=== PATIENT | male | born 1970 | race Caucasian/White ===

== ENCOUNTER 2024-02-13 17:49 | Observation (INO) | payer BC, SELFPAY ==
[2024-02-13] VITALS (7 sets, daily range): BP systolic 91–134; BP diastolic 52–80; PULSE 53–75; TEMP 36.3–39.2; O2SAT 93–98; BMI 18.1
--- NOTE | 2024-02-13 18:12 | XR_ITS ---
The [address] [address] Patient Name: CARLOS ALBERTO GASTON MRN: [id number] date: 1970 Sex: M Assigned Patient Location: ER Current Patient Location: ER Accession/Order Number: [id number] Exam Date: 02/13/2024 18:29 Report Date: 02/13/2024 19:18 At the request of: DANNIE ROBERTS Procedure: XR chest 1V EXAM: XR chest 1V HISTORY: Fever COMPARISON: 04/18/2010. TECHNIQUE: Portable AP view of the chest was obtained. FINDINGS: Stable elevation of the right hemidiaphragm. No cardiomegaly. There is ill-defined patchy airspace disease in the left lung base and in the right suprahilar lung. XR/XR chest 1V IMPRESSION: Ill-defined patchy airspace disease in the left lung base and in the right suprahilar lung. This finding is highly concerning for infection. Follow-up is recommended to document resolution. Electronically authenticated by: HERNANDEZ ARANA Date: 02/13/2024 19:18
--- NOTE | 2024-02-13 18:13 | ED.GENADUL1 ---
HPI HPI - General Adult General Chief complaint: Fever Stated complaint: FLANK PAIN Time Seen by Provider: 02/13/24 17:58 Source: patient Mode of arrival: walk-in Limitations: no limitations History of Present Illness HPI narrative: Patient is a 53-year-old male with no significant medical history who presents to the emergency department for the evaluation of left flank pain, right groin pain and nausea and vomiting over the last 3 days. Patient was unaware of any fevers objectively, although he arrives to the emergency department with a temperature of 102.5 Fahrenheit. He states he had been putting cold rags on his forehead as he felt warm at home. He reports multiple episodes of nausea and vomiting with occasional diarrhea at home. No urinary symptoms although he states he does not seem to be making as much urine over the last several days. He had a procedure at to connect his stomach and esophagus but denies any other abdominal surgeries. No history of kidney stones. No medications taken prior to arrival Related Data Home Medications ?Medication ?Instructions ?Recorded ?Confirmed bupropion HCl 100 mg tablet 200 mg PO BID 02/13/24 02/13/24 Allergies Allergy/AdvReac Type Severity Reaction Status Date / Time No Known Drug Allergies Allergy Verified 02/13/24 17:56 Opioid HPI Opioid Management Most Recent Opioid Data: No Data to Display Review of Systems ROS Constitutional Denies: fever or chills Ears, nose, mouth, and throat Denies: throat pain or nasal congestion Cardiovascular Denies: chest pain Respiratory Denies: shortness of breath or cough Gastrointestinal Reports: abdominal pain, nausea, vomiting and diarrhea Genitourinary Denies: painful urination Musculoskeletal Reports: back pain Integumentary/Breast Denies: rash Hematologic/Lymphatic Denies: easy bruising or easy bleeding PFSH ON LICENSE OF [facility] Social History Little interest or pleasure in doing things: not at all Feeling down, depressed, or hopeless: not at all Exam Narrative Exam Narrative: Gen.: Awake, alert, in no distress Head: Normocephalic, atraumatic ENT: Moist mucous membranes Respiratory: No respiratory distress, lungs clear bilaterally Cardio: Regular rate and rhythm Gastrointestinal: Abdomen is soft, nondistended and mildly tender to palpation in the right lower quadrant with no McBurney's point tenderness, no guarding or rebound Extremities: Moves extremities equally Psych: Normal mood and affect Neuro: No focal neuro deficit Skin: Warm, dry, intact Constitutional Vital Signs, click to edit/add: Last Vital Signs Temp 100.4 F 02/13/24 19:27 Pulse 67 02/13/24 19:27 Resp 16 02/13/24 19:27 BP 93/57 02/13/24 19:27 Pulse Ox 94 L 02/13/24 19:27 O2 Del Method Room Air 02/13/24 17:56 Course Vital Signs Vital signs: Vital Signs Temperature 102.5 F H 02/13/24 17:56 Pulse Rate 75 02/13/24 17:56 Respiratory Rate 18 02/13/24 17:56 Blood Pressure 134/80 02/13/24 17:56 Pulse Oximetry 98 02/13/24 17:56 Oxygen Delivery Method Room Air 02/13/24 17:56 Temperature 100.4 F 02/13/24 19:27 Pulse Rate 67 02/13/24 19:27 Respiratory Rate 16 02/13/24 19:27 Blood Pressure 93/57 02/13/24 19:27 Pulse Oximetry 94 L 02/13/24 19:27 Oxygen Delivery Method Room Air 02/13/24 17:56 Medical Decision Making MDM Narrative Medical decision making narrative: Patient treated for pain with Dilaudid, Toradol, Zofran. IV fluids given. Patient was noted to have hyponatremia, mild leukocytosis, normal lactic acid. Urine specimen with multiple abnormalities although no evidence of infection. Chest x-ray with evidence of multifocal pneumonia and CT of the abdomen and pelvis was initially read as negative although the radiologist called with addendum to say that the right distal ureter appears narrowed with no evidence of hydronephrosis or stranding. Patient admitted for multifocal pneumonia and sepsis as well as hyponatremia. Additional maintenance fluids, Tylenol and Levaquin were given in the ER. I discussed the CT findings with Dr. Thurston for urology. He recommended no additional intervention in the hospital but the patient can follow-up as an outpatient for retrograde cystography and reevaluation. Patient and his significant other were made aware of these findings of the right distal ureter stricture versus non-radiopaque kidney stone, they verbalized understanding for outpatient treatment. Patient admitted in stable condition. SUPERVISED APC VISIT, PHYSICIAN ATTESTATION: Based on the medical record the care appears appropriate. ? Medical Records Medical records reviewed: Yes I reviewed the patient's medical records Lab Data Lab results reviewed: Yes I reviewed the patient's lab results Labs: Lab Results 02/13/24 02/13/24 02/13/24 Range/Units 17:59 18:11 18:18 WBC 12.8 H (4.0-11.0) 10^3/uL RBC 4.61 L (4.70-6.10) 10^6/uL Hgb 14.9 (14.0-18.0) g/dL Hct 42.3 (42.0-54.0) % MCV 91.8 (80.0-94.0) fL MCH 32.3 (25.9-34.0) pg MCHC 35.2 (29.9-35.2) g/dL RDW 12.2 (11.0-15.0) % Plt Count 154 (150-450) 10^3/uL MPV 9.3 L (9.5-13.5) fL Seg Neuts % (Manual) 88.0 H (43.0-75.0) Lymphocytes % (Manual) 4.0 L (20.5-60.0) % Monocytes % (Manual) 8.0 (1.7-12.0) % Eosinophils % (Manual) 0.0 L (0.9-7.0) % Basophils % (Manual) 0.0 L (0.2-2.0) % Neutrophils # (Manual) 11.26 H (1.4-6.5) 10^3/uL Lymphocytes # (Manual) 0.51 L (1.20-3.80) 10^3/uL Monocytes # (Manual) 1.02 H (0.30-0.80) 10^3/uL Eosinophils # (Manual) 0.00 (0.00-0.70) 10^3/uL Basophils # (Manual) 0.00 (0.00-0.10) 10^3/uL VBG pH 7.507 H (7.330-7.430) VBG pCO2 34.2 L (40.0-52.0) mmHg Sodium 124 L* (136-145) mmol/L Potassium 3.7 (3.5-5.1) mmol/L Chloride 87 L (98-107) mmol/L Carbon Dioxide 26.9 (21.0-32.0) mmol/L Anion Gap 13.8 BUN 22.0 H (7.0-18.0) mg/dL Creatinine 1.00 (0.70-1.30) mg/dL Est GFR ( Amer) >60 (>=60) Est GFR (Non-Af Amer) >60 (>=60) BUN/Creatinine Ratio 22.0 Glucose 137 H (74-106) mg/dL Lactate 1.3 (0.4-2.0) mmol/L Calcium 9.0 (8.5-10.1) mg/dL Total Bilirubin 1.1 H (0.2-1.0) mg/dL AST 27 (15-37) U/L ALT 41 (16-63) U/L Alkaline Phosphatase 100 (46-116) U/L Total Protein 7.7 (6.4-8.2) g/dL Albumin 3.4 (3.4-5.0) g/dL Globulin 4.3 g/dL Albumin/Globulin Ratio 0.8 Urine Color Dk. orange (YELLOW) Urine Clarity Clear (CLEAR) Urine pH 6.0 (5.0-9.0) Ur Specific [place] >=1.030 A (1.005-1.025) Urine Protein >=300 A (NEG/TRACE) mg/dL Urine Glucose (UA) 100 A (NEGATIVE) mg/dL Urine Ketones 15 A (NEGATIVE) mg/dL Urine Occult Blood Large A (NEGATIVE) Urine Nitrite Negative (NEGATIVE) Urine Bilirubin Small A (NEGATIVE) Urine Urobilinogen >=8.0 (0.2-1.0) EU/dL Ur Leukocyte Esterase Negative (NEGATIVE) Urine RBC 5-10 A (0-2) #/HPF Urine WBC 0-2 A (NONE SEEN) #/HPF Ur Squamous Epith Cells Rare (NONE/RARE) #/LPF Urine Crystals None seen (None Seen) #/HPF Urine Bacteria Small A (NONE SEEN) #/HPF Urine Casts None seen (NONE SEEN) #/LPF Urine Mucus Moderate A (NONE SEEN) Ur Culture Indicated? Yes SARS-CoV-2 Ag (CV2AG) Negative (NEGATIVE) Imaging Data Chest x-ray: Attestation: I have reviewed the pertinent imaging results. Radiologist's impression: ITS Impressions Chest X-Ray 02/13/24 18:12 IMPRESSION: Ill-defined patchy airspace disease in the left lung base and in the right suprahilar lung. This finding is highly concerning for infection. Follow-up is recommended to document resolution. Electronically authenticated by: HERNANDEZ ARANA Date: 02/13/2024 19:18 Abdomen/Pelvis CT 02/13/24 18:55 IMPRESSION: No evidence of acute abdominopelvic process. Left lower lobe findings concerning for pneumonia. Electronically authenticated by: ARIELLA BALDERRAMA Date: 02/13/2024 19:52 ADDENDUM: 02/13/242013 IMPRESSION: No evidence of acute abdominopelvic process. Left lower lobe findings concerning for pneumonia. Electronically authenticated by: ARIELLA BALDERRAMA Date: 02/13/2024 20:12 Discharge Plan Discharge Chief Complaint: Fever Clinical Impression: Multifocal pneumonia, Sepsis, Acute hyponatremia Patient Disposition: Admitted As Inpatient Time of Disposition Decision: 20:28 Condition: Good Prescriptions / Home Meds: No Action bupropion HCl 100 mg tablet 200 mg PO BID Print Language: Albanian Referrals: EMILIANO ZAMUDIO [Primary Care Provider] - 1 week
[2024-02-13] MEDS: KETOROLAC TROMETHAMINE 30 MG/ML VIAL IVP (18:25)
[2024-02-13] MEDS: ONDANSETRON PF 4 MG/2 ML VIAL IV (18:26)
[2024-02-13] MEDS: 0.9 % SODIUM CHLORIDE 1,000 ML 1000 ML IV (18:26)
[2024-02-13] MEDS: HYDROMORPHONE HCL 0.5 MG/0.5 ML SYRINGE IV (18:26)
[2024-02-13 18:34] LABS: PCO2 VBG 34.2 mmHg (40.0-52.0); pH VBG 7.507 (7.330-7.430)
[2024-02-13 18:47] LABS: Hematocrit 42.3 % (42.0-54.0); Hemoglobin 14.9 g/dL (14.0-18.0); Mean Corpuscular HGB Conc 35.2 g/dL (29.9-35.2); Mean Corpuscular Hemoglobin 32.3 pg (25.9-34.0); Mean Corpuscular Volume 91.8 fL (80.0-94.0); Mean Platelet Volume 9.3 fL (9.5-13.5); Platelet Count 154 10^3/uL (150-450); Red Blood Count 4.61 10^6/uL (4.70-6.10); Red Cell Distribution Width 12.2 % (11.0-15.0); White Blood Count 12.8 10^3/uL (4.0-11.0)
--- NOTE | 2024-02-13 18:55 | CT_ITS ---
The [address] [address] Patient Name: CARLOS ALBERTO GASTON MRN: [id number] date: 1970 Sex: M Assigned Patient Location: ER Current Patient Location: ER Accession/Order Number: [id number] Exam Date: 02/13/2024 18:42 Report Date: 02/13/2024 19:52 At the request of: DANNIE ROBERTS Procedure: CT abdomen pelvis w con EXAM: CT abdomen pelvis w con HISTORY: Abdominal pain COMPARISON: CT chest 06/27/2012 TECHNIQUE: CT of abdomen and pelvis with intravenous contrast in venous and delayed phases. Dose reduction techniques were achieved by using automated exposure control and/or adjustment of mA and/or kV according to patient size and/or use of iterative reconstruction technique. FINDINGS: TUBES AND IMPLANTS: None. LOWER CHEST: Confluent groundglass opacities with subpleural nodularity seen in the left lower lobe. Right lower lobe calcified granuloma. ABDOMEN and PELVIS ABDOMINAL WALL AND SOFT TISSUES: Unremarkable. BONES: Multilevel degenerative changes of the spine. No suspicious lesions. ARTERIES: Moderate aortoiliac atherosclerosis without aneurysm VEINS: Unremarkable. LYMPH NODES: Unremarkable. PERITONEUM/ RETROPERITONEUM: Unremarkable. BOWEL: No obstruction APPENDIX: Unremarkable LIVER: No suspicious lesions. GALLBLADDER: Unremarkable. BILE DUCTS: Not dilated SPLEEN: Calcified granuloma PANCREAS: Unremarkable. ADRENALS: Unremarkable. KIDNEYS/ URETERS: Unremarkable. REPRODUCTIVE ORGANS: Unremarkable URINARY BLADDER: Unremarkable. CT/CT abdomen pelvis w con IMPRESSION: No evidence of acute abdominopelvic process. Left lower lobe findings concerning for pneumonia. Electronically authenticated by: ARIELLA BALDERRAMA Date: 02/13/2024 19:52
[2024-02-13 19:00] LABS: Internal Control Within Normal Limits; SARS-CoV-2 Ag NEGATIVE (NEGATIVE)
[2024-02-13 19:08] LABS: Alanine Aminotransferase 41 U/L (16-63); Albumin Globulin Ratio 0.8; Albumin Level 3.4 g/dL (3.4-5.0); Alkaline Phosphatase 100 U/L (46-116); Anion Gap 13.8; Aspartate Amino Transferase 27 U/L (15-37); Bilirubin Total 1.1 mg/dL (0.2-1.0); Carbon Dioxide 26.9 mmol/L (21.0-32.0); Chloride 87 mmol/L (98-107); Estimated GFR (African America >60 (>=60); Estimated GFR (Non-African Ame >60 (>=60); Globulin 4.3 g/dL; Glucose 137 mg/dL (74-106); Potassium 3.7 mmol/L (3.5-5.1); Total Protein 7.7 g/dL (6.4-8.2)
[2024-02-13 19:10] LABS: Bilirubin Urine SMALL (NEGATIVE); Blood Urine LARGE (NEGATIVE); Clarity Urine CLEAR (CLEAR); Color Urine DK. ORANGE (YELLOW); Glucose Urine UA 100 mg/dL (NEGATIVE); Ketones Urine 15 mg/dL (NEGATIVE); Leukocyte Esterase Urine NEGATIVE (NEGATIVE); Nitrite Urine NEGATIVE (NEGATIVE); Protein Urine >=300 mg/dL (NEG/TRACE); Specific Gravity Urine >=1.030 (1.005-1.025); Urobilinogen Urine >=8.0 EU/dL (0.2-1.0)
[2024-02-13 19:13] LABS: Sodium 124 mmol/L (136-145)
[2024-02-13 19:16] LABS: Urine Microscopic Indicated YES
[2024-02-13 19:21] LABS: Lactate/Lactic Acid 1.3 mmol/L (0.4-2.0)
[2024-02-13 19:36] LABS: WBC Urine 0-2 #/HPF (NONE SEEN)
[2024-02-13 19:37] LABS: Bacteria Urine SMALL #/HPF (NONE SEEN); Mucus Urine MODERATE (NONE SEEN)
[2024-02-13 19:38] LABS: Cast Seen? NONE SEEN #/LPF (NONE SEEN); Crystals Seen? None Seen #/HPF (None Seen); Squamous Epithelial Cell Urine RARE #/LPF (NONE/RARE); Urine Culture Indicated YES
[2024-02-13 20:03] LABS: Lymphocytes Absolute Manual 0.51 10^3/uL (1.20-3.80); Monocytes Absolute Manual 1.02 10^3/uL (0.30-0.80); Segmented Neut Absolute Manual 11.26 10^3/uL (1.4-6.5)
[2024-02-13] MEDS: 0.9 % SODIUM CHLORIDE 1,000 ML 150 ML IV (20:20)
[2024-02-13] MEDS: ACETAMINOPHEN 500 MG TABLET 1000 MG PO (20:20)
[2024-02-13] MEDS: LEVOFLOXACIN IN DEXTROSE 5 % 750 MG/150 ML PREMIX 100 MG IV (20:20)
[2024-02-14] VITALS (10 sets, daily range): BP systolic 112–138; BP diastolic 74–82; PULSE 55–67; TEMP 36.8–37.5; O2SAT 96–98
[2024-02-14] MEDS: ACETAMINOPHEN 325 MG TABLET 650 MG PO (03:43)
[2024-02-14 05:59] LABS: Basophils Percent Auto 0.1 % (0.2-2.0); Eosinophils Percent Auto 0.4 % (0.9-7.0); Hematocrit 37.1 % (42.0-54.0); Immature Granulocytes Abs Auto 0.07 10^3/uL (0.00-0.03); Immature Granulocytes Pct Auto 0.6 % (0.0-0.5); Lymphocytes Absolute Auto 0.5 10^3/uL (1.2-3.8); Lymphocytes Percent Auto 4.4 % (20.5-60.0); Mean Corpuscular Hemoglobin 32.7 pg (25.9-34.0); Mean Corpuscular Volume 93.5 fL (80.0-94.0); Mean Platelet Volume 8.9 fL (9.5-13.5); Monocytes Absolute Auto 1.1 10^3/uL (0.3-0.8); Monocytes Percent Auto 9.7 % (1.7-12.0); Neutrophils Absolute Auto 9.5 10^3/uL (1.4-6.5); Neutrophils Percent Auto 84.8 % (43.0-75.0); Platelet Count 132 10^3/uL (150-450); Red Blood Count 3.97 10^6/uL (4.70-6.10); Red Cell Distribution Width 12.3 % (11.0-15.0); White Blood Count 11.2 10^3/uL (4.0-11.0)
[2024-02-14 06:12] LABS: Alanine Aminotransferase 33 U/L (16-63); Albumin Globulin Ratio 0.7; Albumin Level 2.6 g/dL (3.4-5.0); Alkaline Phosphatase 81 U/L (46-116); Anion Gap 10.2; Aspartate Amino Transferase 20 U/L (15-37); BUN Creatinine Ratio 23.3; Bilirubin Total 0.9 mg/dL (0.2-1.0); Calcium 8.3 mg/dL (8.5-10.1); Carbon Dioxide 27.3 mmol/L (21.0-32.0); Chloride 93 mmol/L (98-107); Estimated GFR (African America >60 (>=60); Estimated GFR (Non-African Ame >60 (>=60); Globulin 3.5 g/dL; Glucose 104 mg/dL (74-106); Potassium 3.5 mmol/L (3.5-5.1); Sodium 127 mmol/L (136-145); Total Protein 6.1 g/dL (6.4-8.2)
[2024-02-14 07:57] LABS: Magnesium 1.8 mg/dL (1.8-2.4)
--- NOTE | 2024-02-14 08:16 | CM.NOTE ---
Rounds made with Dr. Meadows, possible discharge to home after fluids. No discharge needs identified.
[2024-02-14] MEDS: CEFTRIAXONE 1,000 MG in 0.9 % SODIUM CHLORIDE 50 ML 100 MG IV (09:17)
--- NOTE | 2024-02-14 09:21 | P.HP_ITS ---
HPI H&P: HPI History of Present Illness Chief complaint: FLANK PAIN, Multifocal Pneumonia, Sepsis Narrative: Patient came into the emergency room with increasing cough. Found to have pneumonia, multifocal, no hypoxia but significant fever 102.5. Leukocytosis. Patient admitted for workup and treatment of same When I saw patient up on the medical surgical floor, he was resting comfortably in bed. Did have some cough during the evaluation. Feels overall improved. Opioid HPI Opioid Management Most Recent Pain and Opioid Data: Last Pain Scale 6 02/14/24 09:26 Last Pain Assessment 02/14/24 09:26 Last MAR Pain Assessment 02/14/24 09:22 Last ORT Total Score 0 02/13/24 21:12 Last ORT Risk Category Low Risk 02/13/24 21:12 Review of Systems ROS Status of ROS 10 or more systems reviewed and unremark able except as noted in history and below PFSH PFS Surgical History (Updated 02/13/24 @ 22:14 by Jenifer Hatfield) History of esophageal surgery ?Z98.890 - Other specified postprocedural states (ICD-10) H/O vasectomy ?Z98.52 - Vasectomy status (ICD-10) Family History (Updated 02/13/24 @ 22:09 by Jenifer Hatfield) Sister Family history of COPD (chronic obstructive pulmonary disease) Social History (Updated 02/13/24 @ 22:12 by Jenifer Hatfield) Within the past year, how often did you have a drink containing alcohol: never Score interpretation: A score less than 4 is consistent with normal alcohol consumption. Smoking status: Current every day smoker Non-prescribed substance use: cannabis (any form) Previous occupational history: electrical maintenance mechanic Highest level of school completed/degree received: high school graduate Are you now , , , , never or living with a partner: In a typical week, how many times do you talk on the telephone with family, friends, or neighbors: 3 or more times per week How often do you get together with friends or relatives: 3 or more times per week How often do you attend taoism or shinto services: never Little interest or pleasure in doing things: not at all Feeling down, depressed, or hopeless: not at all Feel stressed/tense/nervous/anxious/difficulty sleeping: not at all Do you think of yourself as: straight/heterosexual Gender Identity: male Meds Home Medications and Allergies Home Medications ?Medication ?Instructions ?Recorded ?Confirmed ?Type bupropion HCl 100 mg tablet 200 mg PO BID 02/13/24 02/13/24 History levofloxacin 750 mg tablet 750 mg PO DAILY 10 days #10 tabs 02/14/24 Rx Allergies Allergy/AdvReac Type Severity Reaction Status Date / Time No Known Drug Allergies Allergy Verified 02/13/24 17:56 Exam Constitutional Vital Signs, click to edit/add: Last Vital Signs Temp 98.3 F 02/14/24 08:13 Pulse 62 02/14/24 08:13 Resp 18 02/14/24 08:13 BP 112/74 02/14/24 08:13 Pulse Ox 96 02/14/24 08:13 O2 Del Method Room Air 02/14/24 08:13 Documenting provider has reviewed patient's vital signs: yes Common normals: no apparent distress Chest Common normals: inspection of chest normal Respiratory Common normals: normal respiratory effort and clear to auscultation bilaterally Auscultation: no egophony Cardio Common normals: regular rate and regular rhythm GI Common normals: Normal to inspection, nondistended, normoactive bowel sounds present Results Labs Labs: Short CBC 02/13/24 02/14/24 Range/Units 18:11 05:36 WBC 12.8 H 11.2 H (4.0-11.0) 10^3/uL Hgb 14.9 13.0 L (14.0-18.0) g/dL Hct 42.3 37.1 L (42.0-54.0) % Plt Count 154 132 L (150-450) 10^3/uL BMP 02/13/24 02/14/24 18:11 05:36 Sodium 124 L* 127 L Potassium 3.7 3.5 Chloride 87 L 93 L Carbon Dioxide 26.9 27.3 BUN 22.0 H 20.0 H Creatinine 1.00 0.86 Glucose 137 H 104 Calcium 9.0 8.3 L Liver Function 02/13/24 02/14/24 Range/Units 18:11 05:36 Total Bilirubin 1.1 H 0.9 (0.2-1.0) mg/dL AST 27 20 (15-37) U/L ALT 41 33 (16-63) U/L Alkaline Phosphatase 100 81 (46-116) U/L Albumin 3.4 2.6 L (3.4-5.0) g/dL Urine 02/13/24 Range/Units 17:59 Urine Color Dk. orange (YELLOW) Urine Clarity Clear (CLEAR) Urine pH 6.0 (5.0-9.0) Ur Specific [place] >=1.030 A (1.005-1.025) Urine Protein >=300 A (NEG/TRACE) mg/dL Urine Glucose (UA) 100 A (NEGATIVE) mg/dL ABG ABG results: 02/13/24 18:11 VBG pH 7.507 H VBG pCO2 34.2 L Assessment and Plan Assessment and Plan (1) Acute hyponatremia: (2) Sepsis: (3) Multifocal pneumonia: Plan Admission findings: Fever 102.5, leukocytosis, thrombocytopenia, hyponatremia secondary to multifocal pneumonia. Also concerned about stone but patient does not have any flank pain currently. Multifocal pneumonia with criteria for sepsis-patient overall feels much improved. Will see how the morning progresses. If he remains afebrile, continues to improve, he will be discharged to home later today. Medications see list. Follow-up with PCP next week. Filling defect noted on CT scan, no stone identified, patient currently without flank pain. Can follow-up with that as an outpatient. Leukocytosis-likely secondary to the pneumonia as outlined above-improved mild anemia today, follows an outpatient possible delusional Thrombocytopenia-follows an outpatient Hyponatremia-improved, secondary to dehydration Admission status: Although patient does meet criteria for sepsis with multifocal pneumonia-patient overall feels improved, not on supplemental oxygen, has remained afebrile, likely discharge home later today. Observation status.
[2024-02-14] MEDS: BUPROPION HCL 100 MG SR TABLET 12H 200 MG PO (09:22)
[2024-02-14] MEDS: KETOROLAC TROMETHAMINE 30 MG/ML VIAL IVP (09:22)
[2024-02-14] MEDS: 0.9 % SODIUM CHLORIDE 1,000 ML 1000 ML IV (09:25)
[2024-02-14] MEDS: 0.9 % SODIUM CHLORIDE 1,000 ML 125 ML IV (11:05)
[2024-02-14] MEDS: IPRATROPIUM/ALBUTEROL SULFATE 3 ML AMPUL.NEB IH (11:24)
--- NOTE | 2024-02-17 13:39 | CM.DCFOLLOWU ---
Person spoke with:patient How are you feeling? still feeling not so well, had fevers up until today has not had to take Tylenol yet today. How is your pain? still some pain Did you understand your discharge instructions? yes Do you have any questions about your discharge instructions? no Were you given any prescriptions at discharge? yes Were you able to get your prescriptions filled? yes Do you understand how to take your medications as ordered? yes Do you have any questions about your follow up appointment and do you plan to keep your follow up appointment? no questions, follow ups reviewed Is there anything else that you would like to discuss? no Questions/Comments/Concerns/Other: none
== END 2024-02-14 14:22 | disposition home or self-care (01) ==
LOC: ER 20:54 → MS 02-14 09:13
PROVIDERS: Physician Assistant; Registered Nurse; Admitting Provider Family Medicine; Emergency Provider Student in an Organized Health Care Education/Training Program; PCP Family Medicine; Visit Provider Family Medicine
DX: A41.9 Sepsis, unspecified organism (principal); J18.9 Pneumonia, unspecified organism; E87.1 Hypo-osmolality and hyponatremia; D69.6 Thrombocytopenia, unspecified; R93.5 Abnormal findings on diagnostic imaging of other abdominal regions, including retroperitoneum; F17.210 Nicotine dependence, cigarettes, uncomplicated
CPT/HCPCS: 36415; 71045; 74177; 80053; 81001; 82800; 83605; 83735; 85007; 85025; 85027; 87040; 87070; 87086; 87811; 94640; 94667; 94761; 96361; 96365; 96366; 96367; 96375; 96376; 99285; 99406; G0378; J0696; J1170; J1885; J2405; Q9967